=== PATIENT | female | born 1970 | race Caucasian/White ===

== ENCOUNTER 2022-03-24 15:37 | Emergency (ER) | payer MEDICARE, MEDICAID | END 2022-03-24 16:52 | disposition home or self-care (01) | LOC: JP.ED 15:37 | DX: N39.0 Urinary tract infection, site not specified (principal); I10 Essential (primary) hypertension; E10.9 Type 1 diabetes mellitus without complications; Z88.6 Allergy status to analgesic agent; Z91.018 Allergy to other foods; Z79.899 Other long term (current) drug therapy; Z79.82 Long term (current) use of aspirin | CPT/HCPCS: 81001; 87086; 87088; 87186; 99283 ==

== ENCOUNTER 2022-04-15 14:46 | Emergency (ER) | payer MEDICARE, MEDICAID | END 2022-04-15 16:15 | disposition home or self-care (01) | LOC: JP.ED 14:46 | DX: N39.0 Urinary tract infection, site not specified (principal); J45.909 Unspecified asthma, uncomplicated; I10 Essential (primary) hypertension; Z88.5 Allergy status to narcotic agent; Z91.018 Allergy to other foods; Z88.8 Allergy status to other drugs, medicaments and biological substances; Z79.899 Other long term (current) drug therapy | CPT/HCPCS: 81001; 87086; 87088; 87186; 99283 ==

== ENCOUNTER 2022-04-17 16:34 | Emergency (ER) | payer MEDICARE, MEDICAID ==
[2022-04-17] MEDS ORDERED: cefTRIAXone 2 GM, Lidocaine 1% 4.2 ML IM ONE ×2 (17:50)
== END 2022-04-17 18:31 | disposition home or self-care (01) ==
LOC: JP.ED 16:34
DX: N39.0 Urinary tract infection, site not specified (principal); I10 Essential (primary) hypertension; E10.9 Type 1 diabetes mellitus without complications; G35 Multiple sclerosis; Z88.5 Allergy status to narcotic agent; Z88.8 Allergy status to other drugs, medicaments and biological substances; Z79.82 Long term (current) use of aspirin; Z79.899 Other long term (current) drug therapy; Z86.16 Personal history of COVID-19
CPT/HCPCS: 96372; 99283; J0696

== ENCOUNTER 2022-10-03 15:38 | Emergency (ER) | payer MEDICARE, MEDICAID | END 2022-10-03 17:09 | disposition home or self-care (01) | LOC: JP.ED 15:38 | DX: S01.409A Unspecified open wound of unspecified cheek and temporomandibular area, initial encounter (principal); I10 Essential (primary) hypertension; J45.909 Unspecified asthma, uncomplicated; M19.90 Unspecified osteoarthritis, unspecified site; E10.9 Type 1 diabetes mellitus without complications; Z88.8 Allergy status to other drugs, medicaments and biological substances; Z91.048 Other nonmedicinal substance allergy status; Z88.5 Allergy status to narcotic agent; Z79.899 Other long term (current) drug therapy; Z79.4 Long term (current) use of insulin; Z79.01 Long term (current) use of anticoagulants | CPT/HCPCS: 99283 ==

== ENCOUNTER 2023-02-13 13:20 | Emergency (ER) | payer MEDICARE, MEDICAID | END 2023-02-13 14:52 | disposition home or self-care (01) | LOC: JP.ED 13:20 | DX: T85.598A Other mechanical complication of other gastrointestinal prosthetic devices, implants and grafts, initial encounter (principal); K94.23 Gastrostomy malfunction; I10 Essential (primary) hypertension; J45.909 Unspecified asthma, uncomplicated; E10.9 Type 1 diabetes mellitus without complications; Z79.4 Long term (current) use of insulin; Z91.018 Allergy to other foods; Z88.5 Allergy status to narcotic agent; Z88.8 Allergy status to other drugs, medicaments and biological substances; Z79.899 Other long term (current) drug therapy; Z79.01 Long term (current) use of anticoagulants; Z86.73 Personal history of transient ischemic attack (TIA), and cerebral infarction without residual deficits; Z86.16 Personal history of COVID-19 | CPT/HCPCS: 99282 ==

== ENCOUNTER 2023-03-22 16:33 | Inpatient (IN) | payer MEDICARE, MEDICAID ==
[2023-03-22] MEDS ORDERED: Acetaminophen 325 MG Tab PO PRN (17:30)
[2023-03-22] MEDS ORDERED: Ondansetron 4 MG Tab.DIS PO PRN (17:30)
[2023-03-22] MEDS ORDERED: Magnesium Hydroxide 400 MG/5 ML Susp 30 ML Cup PO PRN (17:30)
[2023-03-22] MEDS ORDERED: Ondansetron 4 MG/2 ML SDV IV PRN (17:30)
[2023-03-22] MEDS ORDERED: Sennosides/Docusate Sodium 50-8.6 MG Tab PO PRN (17:30)
[2023-03-22] MEDS ORDERED: 50% Dextrose in Water 50 ML Syringe IVPUSH PRN (18:14)
[2023-03-22] MEDS ORDERED: CAMPHOR TP PRN (18:14)
[2023-03-22] MEDS ORDERED: Albuterol/Ipratropium 3.0-0.5 MG/3 ML Neb Soln INH PRN (18:14)
[2023-03-22] MEDS ORDERED: Glucagon,Human Recombinant 1 MG Vial IM PRN (18:14)
[2023-03-22] MEDS ORDERED: MENTHOL TP PRN (18:14)
[2023-03-22] MEDS: Lactated Ringers 1,000 ML IV SCH (18:21)
[2023-03-22] MEDS: Meropenem 1 GM in Sodium Chloride 0.9% 100 ML IV SCH (18:40)
[2023-03-22 18:52] LABS: HEMATOCRIT 37.5 % (34.3-46.0); HEMOGLOBIN 11.8 g/dL (11.2-15.5); MEAN CORPUSCULAR HEMOGLOBIN 26.3 pg (31.6-35.5); MEAN CORPUSCULAR HGB CONC 31.5 g/dL (31.6-35.5); MEAN CORPUSCULAR VOLUME 83.5 fL (81.4-99.0); RED BLOOD CELL COUNT 4.49 M/uL (3.77-5.24); WHITE BLOOD CELL COUNT,WBC 12.3 K/uL (3.2-11.0)
[2023-03-22] MEDS ORDERED: Sennosides/Docusate Sodium 50-8.6 MG Tab GTUBE PRN (18:57)
[2023-03-22] MEDS ORDERED: Magnesium Hydroxide 400 MG/5 ML Susp 30 ML Cup GTUBE PRN (18:58)
[2023-03-22] MEDS ORDERED: Ondansetron 4 MG Tab.DIS GTUBE PRN (18:58)
[2023-03-22] MEDS ORDERED: Acetaminophen Soln 160 MG/5 ML UD Cup GTUBE PRN (18:58)
[2023-03-22] MEDS ORDERED: Vancomycin 1 GM SDV IV SCH (19:00)
[2023-03-22 19:07] LABS: CALCIUM 8.7 mg/dL (8.5-10.1); CREATININE 1.3 mg/dL (0.6-1.0); EST CRCL DRUG DOSING (CG) 49.79 mL/min; POTASSIUM,K 3.7 mmol/L (3.6-5.2)
[2023-03-22 19:17] LABS: ANION GAP 15.7 mmol/L (5.0-14.0)
[2023-03-22] MEDS: Insulin Lispro 100 Unit/ML 3 ML KwikPen SUBCUT SCH (21:00)
[2023-03-22] MEDS ORDERED: levETIRAcetam 500 MG/5 ML Solution ML 473 ml Bottle FTUBE SCH (21:00)
[2023-03-22] MEDS ORDERED: Pantoprazole 40 MG Delayed-Release Granules 1 Packet GTUBE SCH (21:00)
[2023-03-22] MEDS ORDERED: Insulin Glargine,Human Rec. Analog 100 Units/ML 3 ML Pen SUBCUT SCH (21:00)
[2023-03-22] MEDS: Apixaban 5 MG Tab GTUBE SCH (21:59)
[2023-03-22] MEDS: Carvedilol 12.5 MG Tab FTUBE SCH (21:59)
[2023-03-22] MEDS: ClonazePAM 0.5 MG Tab GTUBE SCH (21:59)
[2023-03-22] MEDS: Melatonin 3 MG Tab GTUBE SCH (22:00)
[2023-03-22] MEDS: Pregabalin 100 MG Cap PEGTUBE SCH (22:00)
[2023-03-22] MEDS: Budesonide 0.5 MG/2 ML Neb Susp INH SCH ×2 (22:00→22:16)
[2023-03-22] MEDS: traMADol 50 MG Tab FTUBE PRN (22:00)
[2023-03-22] MEDS: rOPINIRole 0.5 MG Tab GTUBE SCH (22:00)
[2023-03-22] MEDS: Triamcinolone Acetonide 0.1% Crm 15 GM Tube TOP SCH (22:01)
[2023-03-22] MEDS: Doxepin 10 MG Cap GTUBE SCH (22:01)
[2023-03-23] MEDS: Meropenem 1 GM in Sodium Chloride 0.9% 100 ML IV SCH ×3 (02:16→17:18)
[2023-03-23 05:03] LABS: HEMATOCRIT 33.6 % (34.3-46.0); HEMOGLOBIN 10.6 g/dL (11.2-15.5); MEAN CORPUSCULAR HEMOGLOBIN 26.2 pg (31.6-35.5); MEAN CORPUSCULAR HGB CONC 31.5 g/dL (31.6-35.5); RED BLOOD CELL COUNT 4.05 M/uL (3.77-5.24); WHITE BLOOD CELL COUNT,WBC 9.8 K/uL (3.2-11.0)
[2023-03-23 05:11] LABS: CALCIUM 8.3 mg/dL (8.5-10.1); CREATININE 1.2 mg/dL (0.6-1.0); EST CRCL DRUG DOSING (CG) 53.94 mL/min; POTASSIUM,K 3.7 mmol/L (3.6-5.2)
[2023-03-23] MEDS: rOPINIRole 0.5 MG Tab GTUBE SCH ×4 (05:13→21:36)
[2023-03-23] MEDS: traMADol 50 MG Tab FTUBE PRN ×3 (05:59→23:59)
[2023-03-23] MEDS: Lactated Ringers 1,000 ML IV SCH ×2 (06:03→17:16)
[2023-03-23] MEDS: Budesonide 0.5 MG/2 ML Neb Susp INH SCH ×2 (07:00→20:12)
[2023-03-23] MEDS: Insulin Lispro 100 Unit/ML 3 ML KwikPen SUBCUT SCH ×4 (08:18→21:32)
[2023-03-23] MEDS ORDERED: TERIFLUNOMIDE 14 MG FTUBE SCH (09:00)
[2023-03-23] MEDS: levETIRAcetam 500 MG/5 ML Solution ML 473 ml Bottle FTUBE SCH ×2 (09:05→20:11)
[2023-03-23] MEDS: Rosuvastatin 10 MG Tab GTUBE SCH (09:06)
[2023-03-23] MEDS: amLODIPine 5 MG Tab GTUBE SCH (09:06)
[2023-03-23] MEDS: Escitalopram 10 MG Tab GTUBE SCH (09:06)
[2023-03-23] MEDS: Apixaban 5 MG Tab GTUBE SCH ×2 (09:07→20:11)
[2023-03-23] MEDS: Triamcinolone Acetonide 0.1% Crm 15 GM Tube TOP SCH ×2 (09:07→20:13)
[2023-03-23] MEDS: Carvedilol 12.5 MG Tab FTUBE SCH ×2 (09:07→20:13)
[2023-03-23] MEDS: Pregabalin 100 MG Cap PEGTUBE SCH ×3 (09:10→20:11)
[2023-03-23] MEDS: ClonazePAM 0.5 MG Tab GTUBE SCH ×2 (09:11→20:11)
[2023-03-23] MEDS ORDERED: diphenhydrAMINE 25 MG/10 ML Cup PO PRN (11:33)
[2023-03-23] MEDS ORDERED: ANTI ITCH TOP PRN (12:58)
[2023-03-23] MEDS: TERIFLUNOMIDE 14 MG PO SCH (13:20)
[2023-03-23] MEDS: Pantoprazole 40 MG Delayed-Release Granules 1 Packet GTUBE SCH (16:22)
[2023-03-23] MEDS: Acetaminophen Soln 650 MG/20.3 ML UD Cup GTUBE PRN (20:09)
[2023-03-23] MEDS: Melatonin 3 MG Tab GTUBE SCH (20:10)
[2023-03-23] MEDS: Doxepin 10 MG Cap GTUBE SCH (20:12)
[2023-03-24] MEDS: Meropenem 1 GM in Sodium Chloride 0.9% 100 ML IV SCH (02:22)
[2023-03-24] MEDS: rOPINIRole 0.5 MG Tab GTUBE SCH ×4 (05:13→21:16)
[2023-03-24] MEDS: Lactated Ringers 1,000 ML IV SCH (05:13)
[2023-03-24 05:31] LABS: CALCIUM 8.2 mg/dL (8.5-10.1); CREATININE 1.3 mg/dL (0.6-1.0); EST CRCL DRUG DOSING (CG) 49.79 mL/min; POTASSIUM,K 3.5 mmol/L (3.6-5.2)
[2023-03-24 05:43] LABS: ANION GAP 13.5 mmol/L (5.0-14.0)
[2023-03-24] MEDS: Budesonide 0.5 MG/2 ML Neb Susp INH SCH ×2 (06:56→21:17)
[2023-03-24] MEDS ORDERED: Potassium Chloride 20 MEQ Tab.ER PO ONE (08:55)
[2023-03-24] MEDS ORDERED: Fluconazole 150 MG Tab GTUBE SCH (09:00)
[2023-03-24] MEDS: Insulin Lispro 100 Unit/ML 3 ML KwikPen SUBCUT SCH ×4 (09:42→21:05)
[2023-03-24] MEDS: Carvedilol 12.5 MG Tab FTUBE SCH ×2 (09:47→21:16)
[2023-03-24] MEDS: Escitalopram 10 MG Tab GTUBE SCH (09:48)
[2023-03-24] MEDS: Apixaban 5 MG Tab GTUBE SCH ×2 (09:48→21:17)
[2023-03-24] MEDS: Rosuvastatin 10 MG Tab GTUBE SCH (09:48)
[2023-03-24] MEDS: levETIRAcetam 500 MG/5 ML Solution ML 473 ml Bottle FTUBE SCH ×2 (09:50→21:16)
[2023-03-24] MEDS: amLODIPine 5 MG Tab GTUBE SCH (09:50)
[2023-03-24] MEDS: cefTRIAXone 1 GM in Sodium Chloride 0.9% 50 ML IV SCH (09:51)
[2023-03-24] MEDS: ClonazePAM 0.5 MG Tab GTUBE SCH ×2 (09:57→21:17)
[2023-03-24] MEDS: Pregabalin 100 MG Cap PEGTUBE SCH ×3 (09:57→21:17)
[2023-03-24] MEDS: Triamcinolone Acetonide 0.1% Crm 15 GM Tube TOP SCH ×2 (09:58→21:19)
[2023-03-24] MEDS: TERIFLUNOMIDE 14 MG PO SCH (09:59)
[2023-03-24] MEDS: traMADol 50 MG Tab FTUBE PRN ×2 (14:22→21:48)
[2023-03-24] MEDS: Pantoprazole 40 MG Delayed-Release Granules 1 Packet GTUBE SCH (16:57)
[2023-03-24] MEDS: Melatonin 3 MG Tab GTUBE SCH (21:17)
[2023-03-24] MEDS: Doxepin 10 MG Cap GTUBE SCH (21:18)
[2023-03-25] MEDS: rOPINIRole 0.5 MG Tab GTUBE SCH ×4 (05:01→21:02)
[2023-03-25 05:03] LABS: CALCIUM 8.3 mg/dL (8.5-10.1); CREATININE 1.2 mg/dL (0.6-1.0); EST CRCL DRUG DOSING (CG) 53.94 mL/min; POTASSIUM,K 3.9 mmol/L (3.6-5.2)
[2023-03-25 05:07] LABS: ANION GAP 10.9 mmol/L (5.0-14.0)
[2023-03-25] MEDS: Budesonide 0.5 MG/2 ML Neb Susp INH SCH ×2 (07:15→20:30)
[2023-03-25] MEDS: Insulin Lispro 100 Unit/ML 3 ML KwikPen SUBCUT SCH ×4 (08:21→20:44)
[2023-03-25] MEDS: cefTRIAXone 1 GM in Sodium Chloride 0.9% 50 ML IV SCH (09:26)
[2023-03-25] MEDS: ClonazePAM 0.5 MG Tab GTUBE SCH ×2 (09:27→20:32)
[2023-03-25] MEDS: Pregabalin 100 MG Cap PEGTUBE SCH ×3 (09:27→20:32)
[2023-03-25] MEDS: Carvedilol 12.5 MG Tab FTUBE SCH ×2 (09:28→20:30)
[2023-03-25] MEDS: Rosuvastatin 10 MG Tab GTUBE SCH (09:28)
[2023-03-25] MEDS: Escitalopram 10 MG Tab GTUBE SCH (09:28)
[2023-03-25] MEDS: levETIRAcetam 500 MG/5 ML Solution ML 473 ml Bottle FTUBE SCH ×2 (09:28→20:29)
[2023-03-25] MEDS: Apixaban 5 MG Tab GTUBE SCH (09:29)
[2023-03-25] MEDS: amLODIPine 5 MG Tab GTUBE SCH (09:29)
[2023-03-25] MEDS: TERIFLUNOMIDE 14 MG PO SCH (09:29)
[2023-03-25] MEDS: Triamcinolone Acetonide 0.1% Crm 15 GM Tube TOP SCH ×2 (09:29→20:30)
[2023-03-25] MEDS: Sodium Chloride 0.9% 1,000 ML IV SCH ×2 (11:34→21:26)
[2023-03-25] MEDS: traMADol 50 MG Tab FTUBE PRN (15:11)
[2023-03-25] MEDS: Pantoprazole 40 MG Delayed-Release Granules 1 Packet GTUBE SCH (16:43)
[2023-03-25] MEDS: oxyCODONE 5 MG Tab PO PRN (19:09)
[2023-03-25] MEDS: Melatonin 3 MG Tab GTUBE SCH (20:29)
[2023-03-25] MEDS: Doxepin 10 MG Cap GTUBE SCH (20:30)
[2023-03-25] MEDS: Apixaban 2.5 MG Tab GTUBE SCH (20:30)
[2023-03-26] MEDS: oxyCODONE 5 MG Tab PO PRN ×2 (02:33→20:11)
[2023-03-26] MEDS: rOPINIRole 0.5 MG Tab GTUBE SCH ×4 (05:42→21:34)
[2023-03-26] MEDS: Budesonide 0.5 MG/2 ML Neb Susp INH SCH ×2 (07:00→20:44)
[2023-03-26] MEDS: Insulin Lispro 100 Unit/ML 3 ML KwikPen SUBCUT SCH ×4 (09:03→21:17)
[2023-03-26] MEDS: cefTRIAXone 1 GM in Sodium Chloride 0.9% 50 ML IV SCH (09:16)
[2023-03-26] MEDS: Sodium Chloride 0.9% 1,000 ML IV SCH (09:17)
[2023-03-26] MEDS: Pregabalin 100 MG Cap PEGTUBE SCH ×3 (09:21→20:43)
[2023-03-26] MEDS: ClonazePAM 0.5 MG Tab GTUBE SCH ×2 (09:21→20:44)
[2023-03-26] MEDS: traMADol 50 MG Tab FTUBE PRN ×2 (09:21→17:56)
[2023-03-26] MEDS: Apixaban 2.5 MG Tab GTUBE SCH ×2 (09:22→20:43)
[2023-03-26] MEDS: amLODIPine 5 MG Tab GTUBE SCH (09:22)
[2023-03-26] MEDS: Escitalopram 10 MG Tab GTUBE SCH (09:22)
[2023-03-26] MEDS: TERIFLUNOMIDE 14 MG PO SCH (09:23)
[2023-03-26] MEDS: levETIRAcetam 500 MG/5 ML Solution ML 473 ml Bottle FTUBE SCH ×2 (09:23→20:45)
[2023-03-26] MEDS: Carvedilol 12.5 MG Tab FTUBE SCH ×2 (09:23→20:44)
[2023-03-26] MEDS: Rosuvastatin 10 MG Tab GTUBE SCH (09:23)
[2023-03-26] MEDS: Triamcinolone Acetonide 0.1% Crm 15 GM Tube TOP SCH ×2 (09:32→21:44)
[2023-03-26] MEDS: Sodium Chloride 0.45% 1,000 ML IV SCH (16:29)
[2023-03-26] MEDS: Pantoprazole 40 MG Delayed-Release Granules 1 Packet GTUBE SCH ×2 (16:30→16:32)
[2023-03-26] MEDS: Acetaminophen Soln 650 MG/20.3 ML UD Cup GTUBE PRN (20:18)
[2023-03-26] MEDS: Melatonin 3 MG Tab GTUBE SCH (20:43)
[2023-03-26] MEDS: Doxepin 10 MG Cap GTUBE SCH (20:44)
[2023-03-27] MEDS: Sodium Chloride 0.45% 1,000 ML IV SCH ×2 (03:51→15:20)
[2023-03-27] MEDS: rOPINIRole 0.5 MG Tab GTUBE SCH ×4 (05:27→21:00)
[2023-03-27] MEDS: Budesonide 0.5 MG/2 ML Neb Susp INH SCH ×2 (07:05→20:55)
[2023-03-27] MEDS: Insulin Lispro 100 Unit/ML 3 ML KwikPen SUBCUT SCH ×4 (07:58→21:24)
[2023-03-27] MEDS: cefTRIAXone 1 GM in Sodium Chloride 0.9% 50 ML IV SCH (08:30)
[2023-03-27] MEDS: Pregabalin 100 MG Cap PEGTUBE SCH ×3 (08:53→21:07)
[2023-03-27] MEDS: ClonazePAM 0.5 MG Tab GTUBE SCH ×2 (08:53→21:07)
[2023-03-27] MEDS: Rosuvastatin 10 MG Tab GTUBE SCH (08:53)
[2023-03-27] MEDS: Apixaban 2.5 MG Tab GTUBE SCH ×2 (08:53→20:54)
[2023-03-27] MEDS: amLODIPine 5 MG Tab GTUBE SCH (08:54)
[2023-03-27] MEDS: Escitalopram 10 MG Tab GTUBE SCH (08:54)
[2023-03-27] MEDS: Carvedilol 12.5 MG Tab FTUBE SCH ×2 (08:54→20:53)
[2023-03-27] MEDS: TERIFLUNOMIDE 14 MG PO SCH (08:55)
[2023-03-27] MEDS: levETIRAcetam 500 MG/5 ML Solution ML 473 ml Bottle FTUBE SCH ×2 (09:02→20:54)
[2023-03-27] MEDS ORDERED: LORazepam 2 MG/ML SDV IVPUSH ONE ×2 (10:00→14:00)
[2023-03-27] MEDS: Triamcinolone Acetonide 0.1% Crm 15 GM Tube TOP SCH ×2 (12:04→20:57)
[2023-03-27] MEDS: oxyCODONE 5 MG Tab PO PRN (15:30)
[2023-03-27] MEDS: Vancomycin 0.9 GM in Sodium Chloride 0.9% 250 ML IV SCH (15:31)
[2023-03-27] MEDS: Pantoprazole 40 MG Delayed-Release Granules 1 Packet GTUBE SCH (15:33)
[2023-03-27] MEDS: traMADol 50 MG Tab FTUBE PRN (19:43)
[2023-03-27] MEDS: Melatonin 3 MG Tab GTUBE SCH (20:55)
[2023-03-27] MEDS: Doxepin 10 MG Cap GTUBE SCH (20:56)
[2023-03-28] MEDS: Vancomycin 0.9 GM in Sodium Chloride 0.9% 250 ML IV SCH ×2 (03:41→16:05)
[2023-03-28 05:57] LABS: CREATININE 1.1 mg/dL (0.6-1.0); EST CRCL DRUG DOSING (CG) 58.68 mL/min
[2023-03-28] MEDS: rOPINIRole 0.5 MG Tab GTUBE SCH ×4 (06:45→21:03)
[2023-03-28] MEDS: oxyCODONE 5 MG Tab PO PRN ×3 (06:46→22:26)
[2023-03-28] MEDS: Budesonide 0.5 MG/2 ML Neb Susp INH SCH ×2 (06:58→20:57)
[2023-03-28] MEDS: Insulin Lispro 100 Unit/ML 3 ML KwikPen SUBCUT SCH ×4 (07:50→21:24)
[2023-03-28] MEDS: amLODIPine 5 MG Tab GTUBE SCH (09:02)
[2023-03-28] MEDS: Pregabalin 100 MG Cap PEGTUBE SCH ×3 (09:02→21:05)
[2023-03-28] MEDS: Apixaban 2.5 MG Tab GTUBE SCH ×2 (09:02→21:04)
[2023-03-28] MEDS: Carvedilol 12.5 MG Tab FTUBE SCH ×2 (09:03→21:03)
[2023-03-28] MEDS: Rosuvastatin 10 MG Tab GTUBE SCH (09:03)
[2023-03-28] MEDS: Escitalopram 10 MG Tab GTUBE SCH (09:03)
[2023-03-28] MEDS: ClonazePAM 0.5 MG Tab GTUBE SCH ×2 (09:03→21:05)
[2023-03-28] MEDS: TERIFLUNOMIDE 14 MG PO SCH (09:03)
[2023-03-28] MEDS: levETIRAcetam 500 MG/5 ML Solution ML 473 ml Bottle FTUBE SCH ×2 (09:04→21:05)
[2023-03-28] MEDS: Triamcinolone Acetonide 0.1% Crm 15 GM Tube TOP SCH ×2 (09:04→20:57)
[2023-03-28] MEDS: cefTRIAXone 1 GM in Sodium Chloride 0.9% 50 ML IV SCH (09:27)
[2023-03-28] MEDS: Sodium Chloride 0.45% 1,000 ML IV SCH ×2 (12:15→23:18)
[2023-03-28] MEDS: Pantoprazole 40 MG Delayed-Release Granules 1 Packet GTUBE SCH (16:08)
[2023-03-28] MEDS: Melatonin 3 MG Tab GTUBE SCH (21:04)
[2023-03-28] MEDS: traMADol 50 MG Tab FTUBE PRN (21:05)
[2023-03-28] MEDS: Doxepin 10 MG Cap GTUBE SCH (21:05)
[2023-03-29] MEDS: Vancomycin 0.9 GM in Sodium Chloride 0.9% 250 ML IV SCH (04:01)
[2023-03-29] MEDS: rOPINIRole 0.5 MG Tab GTUBE SCH ×2 (04:59→10:07)
[2023-03-29] MEDS: oxyCODONE 5 MG Tab PO PRN (05:02)
[2023-03-29] MEDS: Budesonide 0.5 MG/2 ML Neb Susp INH SCH (07:02)
[2023-03-29] MEDS ORDERED: LORazepam 2 MG/ML SDV IVPUSH ONE ×2 (08:30→12:00)
[2023-03-29] MEDS: Insulin Lispro 100 Unit/ML 3 ML KwikPen SUBCUT SCH ×2 (08:48→11:27)
[2023-03-29] MEDS: Rosuvastatin 10 MG Tab GTUBE SCH (10:04)
[2023-03-29] MEDS: Carvedilol 12.5 MG Tab FTUBE SCH (10:04)
[2023-03-29] MEDS: Apixaban 2.5 MG Tab GTUBE SCH (10:04)
[2023-03-29] MEDS: Escitalopram 10 MG Tab GTUBE SCH (10:05)
[2023-03-29] MEDS: levETIRAcetam 500 MG/5 ML Solution ML 473 ml Bottle FTUBE SCH (10:05)
[2023-03-29] MEDS: Pregabalin 100 MG Cap PEGTUBE SCH (10:05)
[2023-03-29] MEDS: ClonazePAM 0.5 MG Tab GTUBE SCH (10:05)
[2023-03-29] MEDS: amLODIPine 5 MG Tab GTUBE SCH (10:06)
[2023-03-29] MEDS: TERIFLUNOMIDE 14 MG PO SCH (10:06)
[2023-03-29] MEDS: Triamcinolone Acetonide 0.1% Crm 15 GM Tube TOP SCH (10:07)
== END 2023-03-29 14:30 | disposition home or self-care (01) | DRG 699 ==
LOC: JP.ICU 16:33
PROVIDERS: ADMIT Internal Medicine; ATTEND Internal Medicine
DX: T83.510A Infection and inflammatory reaction due to cystostomy catheter, initial encounter (principal); N39.0 Urinary tract infection, site not specified; J45.909 Unspecified asthma, uncomplicated; F41.9 Anxiety disorder, unspecified; F32.A Depression, unspecified; Z96.0 Presence of urogenital implants; G35 Multiple sclerosis; E86.0 Dehydration; I12.9 Hypertensive chronic kidney disease with stage 1 through stage 4 chronic kidney disease, or unspecified chronic kidney disease; E10.22 Type 1 diabetes mellitus with diabetic chronic kidney disease; N18.2 Chronic kidney disease, stage 2 (mild); L98.9 Disorder of the skin and subcutaneous tissue, unspecified; Z20.822 Contact with and (suspected) exposure to COVID-19; E87.6 Hypokalemia; B96.20 Unspecified Escherichia coli [E. coli] as the cause of diseases classified elsewhere; Z79.899 Other long term (current) drug therapy; Z79.52 Long term (current) use of systemic steroids; Z86.73 Personal history of transient ischemic attack (TIA), and cerebral infarction without residual deficits; Z88.8 Allergy status to other drugs, medicaments and biological substances; Z88.6 Allergy status to analgesic agent; Z79.4 Long term (current) use of insulin; Z86.16 Personal history of COVID-19; Z95.0 Presence of cardiac pacemaker; Z98.1 Arthrodesis status; Z87.891 Personal history of nicotine dependence; Y84.6 Urinary catheterization as the cause of abnormal reaction of the patient, or of later complication, without mention of misadventure at the time of the procedure; Y92.89 Other specified places as the place of occurrence of the external cause
CPT/HCPCS: 36415; 51702; 73723-26-LT; 73723-LT; 80048; 80202; 82565; 82947; 85027; 87070; 87077; 87086; 87088; 87186; 94640; 97163-GP; 99222; 99232; 99233; 99239; A9270-GY; A9579; J0696; J1815; J1815-GY; J2060; J2185; J3370; J3490; J7030; J7050; J7120; U0002